=== PATIENT | female | born 1950 | race Caucasian/White ===

== ENCOUNTER 2023-04-25 08:39 | Emergency (ER) | payer MEDICARE, OTHER | END 2023-04-25 13:20 | disposition home or self-care (01) | LOC: JD.ED 08:39 | DX: G44.209 Tension-type headache, unspecified, not intractable (principal); E23.6 Other disorders of pituitary gland; Z88.5 Allergy status to narcotic agent; Z86.16 Personal history of COVID-19 | CPT/HCPCS: 70551; 70551-26; 99284 ==